=== PATIENT | female | born 1930 | race Caucasian/White ===

== ENCOUNTER → 2017-03-03 | Day surgery (SDC) | payer MEDICARE, BC ==
[~2017-03-03] MED LIST: BUPIVACAINE/EPINEPHRINE 0.5% PF 30 ML VIAL ONE; KETOROLAC TROMETHAMINE 30 MG/ML (IVP) VIAL IV PUSH ONE; LACTATED RINGER'S 1,000 ML BAG IV ONE; LIDOCAINE 1.5%/EPINEPHrine 1:200,000 PF SOLN 30 ML AMP ONE; ONDANSETRON HCL 4 MG/2 ML VIAL IV PUSH ONE; PROPOFOL 200 MG/20 ML AMP IV ONE; PROT40TA PO; SODIUM CHLORIDE 0.9% INJ 10 ML ONE; Z.0.NO CURRENT MEDS
--- NOTE | 2017-03-03 22:02 | TN ---
cc: SHRUTHI ASHTON MD DATE OF SURGERY 03/03/2017 PREOPERATIVE DIAGNOSIS Bilateral inguinal hernia, right greater than left, reducible. POSTOPERATIVE DIAGNOSIS Bilateral inguinal hernia, right greater than left, reducible. PROCEDURE PERFORMED Bilateral inguinal hernia repair, open with mesh. SURGEON Dr. Shruthi Ashton. SUPERVISOR CEREAL Dr. Bartlett necessary due to the complex nature of the open operative case. Dr. Bartlett assisted in retraction and helped with suturing. ANESTHESIA GETA. IV FLUIDS see anesthesia sheet. ESTIMATED BLOOD LOSS 10 cc. DRAINS None. COMPLICATIONS None. WOUND CLASSIFICATION Clean. SPECIMEN None. FINDINGS Indirect bilateral inguinal hernias, reducible. Large cord lipomas. INDICATION The patient is an 86-year-old active female who presented with right greater than left inguinal hernia. She noticed the hernias becoming increasing in size causing her some discomfort. This has been going on for several months. The patient was in need of repair. Discussion with the patient regarding open inguinal hernia technique. This was discussed. The patient has had previous abdominoplasty necessitating an open approach. PROCEDURE IN DETAIL The patient was taken to the operating suite, placed in supine position. She was prepped and draped in usual sterile fashion after induction of general trache anesthesia. A brief time-out done stating patient, procedure and surgical site and we were all in agreement with this. Attention first directed to the right inguinal area. The tummy tuck scar was identified and noted to be somewhat low to our surgical approach incision. Therefore more superior curvilinear incision was made between the pubic tubercle and the anterior superior iliac spine. This was done transversely in a half [place] approach. This was done with a 15 blade. Further dissection with electro Bovie cautery. Down to the external oblique fascia. The fascia was identified going down and identifying the inguinal canal and superficial ring. A stab maritza incision was made in the direction of fibers of the external oblique. Metzenbaum scissors used to run in the direction of the inguinal canal. Opening the external fascia. The round ligament was noted. There was a large cord lipoma also noted and a large hernia sac. The herniated sac cord lipoma was reduced back into the abdomen. Flaps were created inferior and superior. After mobilization and reduction of the sac the ilioinguinal nerve was noted and this nerve was actually ligated. Round ligament was also identified. The round ligament was Bovie cautery and ligated and 2-0 Vicryl tie was used to ligate this. The floor was then imbricated with 3-0 Vicryl to reinforce and approximate the floor. Next Atrium light weight polypropylene mesh was obtained 6 x 6. This was cut in half in order to fit and recreate the inguinal floor. 0 Ethibond was used in an interrupted fashion, securing the angle of the mesh to the pubic tubercle running up the shelving edge and conjoined tendon. This was secured in place and noted to be taut and well secured. Next the right groin was closed in layers after injection of local anesthetic. This was done to the superficial oblique fascia followed by Oumar's fascia followed by subcuticular suture all done with 3-0 Vicryl. 4-0 Monocryl subcuticular suture was done. Sterile dressings in place. Next the attention directed to the left side. Left side was approached in a similar manner to the right side. 15 blade scalpel was used to make a horizontal incision curvilinear, further dissection with electro Bovie cautery. This was done through Oumar's fascia down to the external oblique. External oblique also had stab maritza incision made. Metzenbaum scissors done to the superficial ring. And dissection of the lipoma, round ligament were done. The ilioinguinal nerve was identified, ligated along with the ligament. The hernia sac was completely reduced back into the abdomen. The floor was imbricated again with 3-0 Vicryl suture. Next the floor was recreated with a similar polypropylene mesh and attached to the pubic tubercle, conjoined tendon and shelving edge. Hemostasis was obtained. The wound was also closed in layers similar to previous. The external oblique was closed creating the superficial ring. Oumar's fascia closed, subcuticular suture was done, all done with 3-0 Vicryl suture. 4-0 Monocryl was done with subcuticular suture. Sterile dressings in place. The patient tolerated the procedure well. No intraoperative complication. All lap and instrument counts were correct at the end of the procedure. The patient was extubated and taken stable to the postanesthesia care unit. MD MARYJO Shearer/JAYNE /7:19 PM /9:46 PM #: [id number] KEIRA
== END | disposition home or self-care (01) ==
LOC: ESDC 10:00
PROVIDERS: ATTEND Surgery
DX: K40.20 Bilateral inguinal hernia, without obstruction or gangrene, not specified as recurrent (principal)
CPT/HCPCS: 00830; 49505; J1885; J2405; J3010; C1781; J7120